=== PATIENT | male | born 1995 | race Asian ===

== ENCOUNTER 2018-06-03 22:51 | Emergency (ER) | payer BC ==
[2018-06-03] MEDS ORDERED: LORazepam 0.5 MG TAB PO ONE (23:17)
--- NOTE | 2018-06-03 23:17 | EDPHY ---
H & P Smoking Status: Never smoked Time Seen by Provider: 06/03/18 23:12 HPI/ROS: CHIEF COMPLAINT: Chest pressure HISTORY OF PRESENT ILLNESS: Patient is a 23-year-old male with a history of anxiety and depression and chronic hepatitis B infection from childhood. He is here reporting chest pressure for the last 2-3 hours. He denies any fever or cough. He has no history of DVT or P E. He denies any pleuritic pain. Does have history of anxiety and panic attack but states this feels different. He has taken no drugs or alcohol today. He has no cardiac history. He has noticed nose leg swelling. He has had no recent travel or surgery. REVIEW OF SYSTEMS: Constitutional: No fever, no chills. Eyes: No discharge. ENT: No sore throat. Cardiovascular: + chest pain, no palpitations. Respiratory: No cough, no shortness of breath. Gastrointestinal: No abdominal pain, no vomiting. Genitourinary: No hematuria. Musculoskeletal: No back pain. Skin: No rashes. Neurological: No headache. (Kingsley Bedolla) Physical Exam: General Appearance: Alert and no distress. Eyes: Pupils equal and round no injection. Respiratory: Chest is nontender, lungs are clear to auscultation. Cardiac: regular rate and rhythm. Gastrointestinal: Abdomen is soft and nontender, no masses, bowel sounds normal. Musculoskeletal: Neck is supple and nontender. Extremities have full range of motion and are nontender. Skin: No rashes or lesions. (Kingsley Bedolla) Constitutional: Initial Vital Signs Temperature (C) 37.0 C 06/03/18 23:00 Heart Rate 105 H 06/03/18 23:00 Respiratory Rate 18 06/03/18 23:00 Blood Pressure 145/92 H 06/03/18 23:00 O2 Sat (%) 96 06/03/18 23:00 O2 Delivery Mode Room Air Allergies/Adverse Reactions: ibuprofen Allergy (Verified 06/03/18 23:00) Home Medications: Medication Instructions Recorded NK [No Known Home Meds] 06/03/18 Medical Decision Making - Diagnostics Imaging Results: Imaging Impressions Chest X-Ray 06/03/18 23:17 IMPRESSION: No evidence for acute cardiopulmonary abnormality. ED Course/Re-evaluation: Patient here with chest pressure for the last few hours here with normal EKG and chest x-ray and troponin. The no evidence of hypoxia or respiratory distress. He did feel slightly improved with Ativan. As there is no clear source of his chest pain but no emergent condition identified here he will follow up with his primary care physician. Indications for return were discussed. (Kingsley Bedolla) PHYSICIAN DOCUMENTATION: The patient was evaluated and managed by the Physician Lumber Sorter. My co- signature indicates that I have reviewed this chart and I agree with the findings and plan of care as documented. I am the secondary supervising physician. (Claudia Vazquez) Differential Diagnosis: Pulmonary embolism, ACS, asthma, pneumothorax (Kingsley Bedolla) - Data Points Laboratory Results: 06/03/18 23:36 POC Troponin I 0.05 ng/mL ng/mL (0.00-0.08) Medications Given: Discontinued Medications Lorazepam (Ativan) 0.5 mg PO EDNOW ONE Stop: 06/03/18 23:18 Last Admin: 06/03/18 23:36 Dose: 0.5 mg Point of Care Test Results: Chemistry 06/03/18 23:36 POC Troponin I 0.05 ng/mL ng/mL (0.00-0.08) Departure - Departure Disposition: Home, Routine, Self-Care Clinical Impression: Chest pain Condition: Good Instructions: Chest Pain (ED) Additional Instructions: The source of you're chest pain/pressure is unclear. This could be related to you're underlying anxiety. Please follow up with your primary care doctor early next week if he have any persistent symptoms. If he have worsening symptoms such as pain with breathing, shortness of breath, coughing blood, worsening pain please return to the ER. Referrals: NONE *PRIMARY CARE P,. [Primary Care Provider] - As per Instructions [facility] [Clinic] - As per Instructions
[2018-06-04 00:37] VITALS: BP 132/74
--- NOTE | 2018-06-04 08:16 | CPEKG ---
Test Reason : OPEN Blood Pressure : / mmHG Vent. Rate : 094 BPM Atrial Rate : 094 BPM P-R Int : 160 ms QRS Dur : 101 ms QT Int : 366 ms P-R-T Axes : 041 046 007 degrees QTc Int : 458 ms Sinus rhythm Confirmed by Claudia Vazquez ([id number]) on 06/04/2018 8:15:53 AM Referred By: Confirmed By:Claudia Vazquez
== END 2018-06-04 00:37 | disposition home or self-care (01) ==
DX: R07.9 Chest pain, unspecified (principal); B19.10 Unspecified viral hepatitis B without hepatic coma
CPT/HCPCS: 84484-PO